=== PATIENT | female | born 1990 | race Caucasian/White ===

== ENCOUNTER 2018-04-11 02:44 | Inpatient (IN) | payer SELFPAY ==
[2018-04-11 03:25] VITALS: BMI 33.8
[2018-04-11 03:40] LABS: SQUAMOUS EPITHIAL 11 /hpf (0-5); URINE BACTERIA MOD (<OCC); URINE BILIRUBIN NEGATIVE (NEGATIVE); URINE BLOOD 1+ (NEGATIVE); URINE CLARITY Clear (Clear); URINE COLOR Yellow (YELLOW); URINE GLUCOSE (UA) NORMAL (Normal); URINE LEUKOCYTE ESTERASE NEG Leu/uL (Negative); URINE PROTEIN NEGATIVE (NEGATIVE); URINE UROBILINOGEN NORMAL mg/dL (0.2-1.0)
[2018-04-11] MEDS ORDERED: Lactated Ringer's 1,000 ML IV ONE (04:22)
[2018-04-11] MEDS ORDERED: Lactated Ringer's 1,000 ML IV SCH (04:30)
--- NOTE | 2018-04-11 04:49 | OBHP ---
Datetime: 04/11/2018 04:39 IP Adm Impression: Term, intrauterine ; Active labor; Intact Membranes IP Admit Plan: Admit to unit; Initiate labor protocol Admit Comment, IP Provider: 28 yo femake with an IUP at 38.6 weeks with an EDC at 04/19/18 an d presents with c/o of UC's every 5-10 since last PM and worsening. Denies gush of fluid, VB or VD. A dmit to adequate movement. course uneventful, per patient. Past OB hx: 1 at term PMHX and PSHx Negative NKDA Social Hx: denies x 3 A/P Term in labor with Intact membranes NST Reactive Cx's Q 2-3 minutes GBS Negative UA Negative Will admit for Anticipated Vaginal delivery Pelvic Type - PN: Adequate Extremities - PN: Normal Abdomen - PN: Normal Back - PN: Normal Breast - PN: Not Done Lungs - PN: Normal Heart - PN: Normal Thyroid - PN: Normal Neurologic - PN: Normal HEENT - PN: Normal General - PN: Normal Presentation-Admit: Vertex FHR - Baseline A Provider: 140 Membranes, Provider: Intact Contraction Comments Provider: 2-3 Gestation - Est Wks by US: 38.6 IP Hx Assessment: The History has been Reviewed and is Current EGA AdmitDate IP: 38.6 Vital Signs Provider: Reviewed; Within Normal Limits IP Chief Complaint: Uterine contractions; Maternal discomfort NICHD Variability Prov Fetus A: Moderate 6-25bpm NICHD Accel Fetus A IP Provider: 15X15 FHR Category Provider Fetus A: Category I NICHD Decel Fetus A IP Provider: None Dilatation, Provider: 4 Effacement, Provider: 100 Station, Provider: -1 Genitourinary Exam: Normal DTRs - PN: Normal
--- NOTE | 2018-04-11 05:05 | OBADHP ---
Datetime: 04/11/2018 04:39 Admit Comment, IP Provider: 28 yo fidelia with an IUP at 38.6 weeks with an EDC at 04/19/18 an d presents with c/o of UC's every 5-10 since last PM and worsening. Denies gush of fluid, VB or VD. A dmit to adequate movement. course uneventful, per patient. Past OB hx: 1 at term PMHX and PSHx Negative NKDA Social Hx: denies x 3 A/P Term in labor with Intact membranes NST Reactive Cx's Q 2-3 minutes GBS Negative UA Negative Will admit for Anticipated Vaginal delivery Pelvic Type - PN: Adequate Extremities - PN: Normal Abdomen - PN: Normal Back - PN: Normal Breast - PN: Not Done Lungs - PN: Normal Heart - PN: Normal Thyroid - PN: Normal Neurologic - PN: Normal HEENT - PN: Normal General - PN: Normal Presentation-Admit: Vertex FHR - Baseline A Provider: 140 Membranes, Provider: Intact Contraction Comments Provider: 2-3 Gestation - Est Wks by US: 38.6 IP Hx Assessment: The History has been Reviewed and is Current Vital Signs Provider: Reviewed; Within Normal Limits IP Chief Complaint: Uterine contractions; Maternal discomfort NICHD Variability Prov Fetus A: Moderate 6-25bpm NICHD Accel Fetus A IP Provider: 15X15 FHR Category Provider Fetus A: Category I NICHD Decel Fetus A IP Provider: None Dilatation, Provider: 4 Effacement, Provider: 100 Station, Provider: -1 Genitourinary Exam: Normal DTRs - PN: Normal EGA AdmitDate IP: 38.6 IP Adm Impression: Term, intrauterine ; Active labor; Intact Membranes IP Admit Plan: Admit to unit; Initiate labor protocol
[2018-04-11 05:25] LABS: BASO % 0.2 % (0.0-2.0); EOS # 0.1 K/uL (0.0-0.7); EOS % 1.1 % (0.0-4.0); HEMOGLOBIN 10.3 g/dL (11.0-16.0); LYMPH # 1.9 K/uL (1.0-4.3); LYMPH % 20.2 % (20.0-40.0); MEAN CELL VOLUME 80.7 fL (81.0-99.0); MEAN CORPUSCULAR HEMOGLOBIN 25.8 pg (27.0-31.0); MEAN CORPUSCULAR HGB CONC 31.9 g/dL (33.0-37.0); MEAN PLATELET VOLUME 9.2 fL (7.2-11.7); MONO # 0.6 K/uL (0.0-0.8); MONO % 5.9 % (0.0-10.0); NEUT # 6.9 K/uL (1.8-7.0); NEUT % 72.6 % (50.0-75.0); NRBC % 0.1 % (0.0-2.0); RBC 3.98 Mil/uL (3.80-5.20); RED CELL DISTRIBUTION WIDTH 15.9 % (11.5-14.5); WHITE BLOOD COUNT 9.5 K/uL (4.8-10.8)
[2018-04-11 05:38] LABS: ALB/GLOB RATIO 1.1 (1.0-2.1); ALBUMIN 3.6 g/dL (3.5-5.0); ALT/SGPT 15 U/L (9-52); AST/SGOT 22 U/L (14-36); BLOOD UREA NITROGEN 10 mg/dL (7-17); CALCIUM 8.6 mg/dl (8.6-10.4); GFR NON-AFRICAN AMERICAN > 60
[2018-04-11] MEDS ORDERED: Lidocaine 2% MPF (5 ml) Inj ONE (07:31)
[2018-04-11] MEDS ORDERED: Bupivacaine HCl/FentaNYL Cit 100 ML EPI ONE (08:57)
--- NOTE | 2018-04-11 09:26 | OBPN ---
Datetime: 04/11/2018 07:15 IP Progress Impression: Normal progression of labor; Reassuring heart rate IP Procedures: Sterile Vag Exam IP Progress Plan: Continue present management; Anticipate Vaginal Delivery Membranes, Provider: Intact Contraction Comments Provider: q3-4min FHR - Baseline A Provider: 135 IP Progress Note Comment: Patient seen and examined at bedside. Patient reports feeling contractions . Rates her pain 8/10 on pain scale. Offers no other complaints at this time. VSS SVE: 5/100/-1, membranes intact A/P: Patient is a at 38w6d in active labor -Reassuring status, Category I tracing -GBS negative, no antibiotics needed at this time -Patient counselled on epidural anesthesia, she declines at this time -We will continue current management -Anticipate a vaginal delivery Plan discussed with Dr Dillon Patterson DO PGY-2 Pt seen and examined with Dr. Patterson. Al of her findings and POC were fully discussed and agreed on . Vital Signs Provider: Reviewed NICHD Accel Fetus A IP Provider: 15X15 FHR Category Provider Fetus A: Category I NICHD Variability Prov Fetus A: Moderate 6-25bpm Dilatation, Provider: 5 Effacement, Provider: 100 Station, Provider: -1 NICHD Decel Fetus A IP Provider: None Datetime: 04/11/2018 04:39 Gestation - Est Wks by US: 38.6 Presentation-Admit: Vertex
[2018-04-11] MEDS ORDERED: Oxytocin 30 UNIT 30 UNITS/500 ML BAG IV ONE (09:54)
[2018-04-11] MEDS ORDERED: Oxytocin 30 UNIT 30 UNITS/500 ML BAG IV SCH (10:00)
[2018-04-11] MEDS ORDERED: Benzocaine/Menthol 20%-0.5% Topical Spray (60 ml) TOP PRN (11:51)
[2018-04-11] MEDS ORDERED: Oxycodone/Acetaminophen 5/325 mg Tab PO PRN (11:51)
--- NOTE | 2018-04-11 12:22 | OBDS ---
DELIVERY PERSONNEL Delivery Doctor: Syl Carranza DO Jewelry Maker: JUSTINA Dick Anesthesiologist: Dr. Muñoz Resident: Dr Howell MATERNAL INFORMATION Delivery Anesthesia: Epidural Medications in Delivery: pitocin Estimated Blood Loss (ml): 300 Placenta Cultured: No Maternal Complications: None Provider Comments: of a viable Male from LIT position over an intact perineum and after double clampping and transecting a tight CNC x 1. Apgars 9_9 and BW 7lbs, 12oz. Cord Blood and Cord pH obtained and sent Placenta with 2 vessel cord and spontaneously delivered. EBL 300 mls Pt and both tolerated the procedure well and remained in LDR in S_S condition. LABOR SUMMARY EDC: 04/19/2018 00:00 No. Babies in Womb: 0 Attempted: No Labor Anesthesia: Epidural LABOR INFORMATION Onset of Labor: 04/10/2018 22:00 Complete Dilatation: 04/11/2018 11:04 Oxytocin: Augmentation Group B Beta Strep: Negative Steroids Given: None Reason Steroids Not Administered: Not Applicable MEMBRANES Membranes Rupture Method: Artificial Rupture of Membranes: 04/11/2018 10:15 Length of Rupture (hrs): 1.27 Amniotic Fluid Color: Clear Amniotic Fluid Amount: Small STAGES OF LABOR Stage 1 hrs: 13 Stage 1 min: 4 Stage 2 hrs: 0 Stage 2 min: 27 Stage 3 hrs: 0 Stage 3 min: 5 Total Time in Labor hrs: 13 Total Time in Labor min: 36 VAGINAL DELIVERY Episiotomy: None Laceration Extension: N/A Laceration Type: None Laceration Repair: Not Applicable Initial Vag Sponge Count: 10 Final Vag Sponge Count: 10 Initial Vag Sharps Count: 0 Final Vag Sharps Count: 0 Sponge Count Correct: Yes Sharps Count Correct: N/A BABY A INFORMATION Infant Delivery Date/Time: 04/11/2018 11:31 Method of Delivery: Vaginal Born in Route : No : N/A Forceps: N/A Vacuum Extraction: N/A Shoulder Dystocia : No SHOULDER DYSTOCIA BABY A Infant Delivery Date/Time: 04/11/2018 11:31 PRESENTATION/POSITION BABY A Presentation: Cephalic Cephalic Presentation: Vertex Vertex Position: Left Occipital Anterior Breech Presentation: N/A PLACENTA INFORMATION BABY A Placenta Delivery Time : 04/11/2018 11:36 Placenta Method of Delivery: Spontaneous Placenta Status: Delivered SCORES BABY A Heart Rate 1 min: >100 bpm Resp Effort 1 min: Good Cry Reflex Irritability 1 min: Cough or Sneeze or Pulls Away Muscle Tone 1 min: Active Motion Color 1 min: Body Section, Extremities Blue Resuscitation Effort 1 min: Tactile Stimulation SCORE 1 MIN: 9 Heart Rate 5 min: >100 bpm Resp Effort 5 min: Good Cry Reflex Irritability 5 min: Cough or Sneeze or Pulls Away Muscle Tone 5 min: Active Motion Color 5 min: Body Section, Extremities Blue Resuscitation Effort 5 min: Tactile Stimulation SCORE 5 MIN: 9 INFORMATION BABY A Gestational Age at Delivery: 38.6 Gestational Status: Term Outcome : Liveborn Condition : Stable Sex: Male IDENTIFICATION/MEDS BABY A ID Band Number: [id number] ID Band Location: Left Leg; Left Arm Sensor Applied: Yes Sensor Number: [id number] Sensor Location : Cord Clamp WEIGHT/LENGTH BABY A Infant Birthweight (gms): 3525 Infant Weight (lb): 7 Weight (oz): 12 Length Inches: 19.75 Length cms: 50.2 CORD INFORMATION BABY A No. Cord Vessels: 3 Nuchal Cord : Around Neck x1, Tight Infant Cord pH Baby Venous: 7.26 Cord Blood Taken: Yes Suction: Mouth; Nose ASSESSMENT BABY A Complications: None Physical Findings at Delivery: Within Normal Limits Respirations: Appears Normal Box Machine Operator/ALS Called : No Care By: Naty Trejo RN Transferred To: Remains with Mother
[2018-04-12 07:19] LABS: BASO % 0.3 % (0.0-2.0); EOS # 0.1 K/uL (0.0-0.7); EOS % 1.2 % (0.0-4.0); LYMPH # 2.8 K/uL (1.0-4.3); LYMPH % 22.8 % (20.0-40.0); MEAN CELL VOLUME 81.3 fL (81.0-99.0); MEAN CORPUSCULAR HEMOGLOBIN 26.3 pg (27.0-31.0); MEAN CORPUSCULAR HGB CONC 32.3 g/dL (33.0-37.0); MEAN PLATELET VOLUME 8.9 fL (7.2-11.7); MONO # 0.7 K/uL (0.0-0.8); MONO % 5.4 % (0.0-10.0); NEUT # 8.5 K/uL (1.8-7.0); NEUT % 70.3 % (50.0-75.0); RBC 3.42 Mil/uL (3.80-5.20); RED CELL DISTRIBUTION WIDTH 15.6 % (11.5-14.5); WHITE BLOOD COUNT 12.1 K/uL (4.8-10.8)
[2018-04-12] MEDS: Multiple Vitamins Tab PO SCH (10:11)
--- NOTE | 2018-04-12 14:44 | OBPPN ---
Datetime: 04/12/2018 06:53 PP Pain Prov: Within normal limits PP Nausea Prov: Denies PP Flatus Prov: Yes PP BM Prov: Yes PP Heart Prov: Normal PP Lungs Prov: Normal PP Comments Phys Exam Prov: Gen: no acute distress Heart: RRR, no m/r/g Lungs: CTAB, no r/r/w Abd: soft, NTND, fundal height 3 fingers breath above umbilicus : mild vaginal bleeding, no clots Ext: no edema, pulses palpable PP Impression Prov: Normal progression PP Plan Prov: Continue present management; consult PP Progress Note Prov: Patient was seen and examined today OOB at bedside in no acute distress. She is eating without any nausea/vomiting. She is walking to the bathroom without difficulty but hasn't w alked around the halls yet. She is having trouble producing sufficient milk, and is requesting to sup plement with formula. Her pain was tolerable yesterday, but she's requesting pain medicine today. Adm its to mild lochia. A/P: 28yo s/p PPD#1 - continue pain management - H_H 10.3->9.0, started on Feosol - encourage ambulation - encourage - plan for discharge in AM Selene Huggins PGY-1 Attending Note: patient seen, evaluated and examined by me with the Resident. I agree with the ab ove as documented. Patient is clinically stable. Plan: 1) as above 2) Anticipate discharge home 04/13/18 IP PP Procedures: None Vital Signs Provider PP: Reviewed; Within Normal Limits
[2018-04-13 08:06] VITALS: BP 110/73; PULSE 95; RESP 18; TEMP 98.9; O2SAT 100
[2018-04-13] MEDS ORDERED: Influenza Vaccine 60 mcg/0.5 mL SYR (4YR UP) IM ONE (10:04)
[2018-04-13] MEDS: Multiple Vitamins Tab PO SCH (10:13)
== END 2018-04-13 12:15 | disposition home or self-care (01) | DRG 807 ==
LOC: C.EROB 02:44 → C.4D 04:23 → C.4M 14:18
PROVIDERS: ADMIT Obstetrics & Gynecology; ATTEND Obstetrics & Gynecology
PROC: 10E0XZZ Delivery of Products of Conception, External Approach (ICD-10-PCS; principal; 2018-04-11)
PROC: 10907ZC Drainage of Amniotic Fluid, Therapeutic from Products of Conception, Via Natural or Artificial Opening (ICD-10-PCS; 2018-04-11)
DX: O69.1XX0 Labor and delivery complicated by cord around neck, with compression, not applicable or unspecified (principal); Z37.0 Single live birth; Z3A.38 38 weeks gestation of pregnancy